=== PATIENT | male | born 1960 | race Caucasian/White ===

== ENCOUNTER 2019-03-25 23:51 | Emergency (ER) | payer SELFPAY ==
[2019-03-26] MEDS ORDERED: NA CHLORIDE 0.9% 1,000 ML ONE ×2 (00:51→02:58)
[2019-03-26] MEDS ORDERED: ONDANSETRON 4 MG/2 ML VIAL ONE (00:51)
[2019-03-26 01:09] LABS: Absolute Lymphocytes (CBC) 1.3 K/uL (0.7-4.9); Absolute Monocytes 1.1 K/uL (0.1-1.3); Basophils % 1.2 % (0-1.3); Eosinophils % 1.1 % (0-4.4); Hematocrit 36.6 % (39.6-49.0); Lymphocytes % 11.3 % (15.3-44.8); MPV 9.2 fL (7.6-11.3); Monocytes % 9.4 % (3.3-12.3); RBC Red Blood Cell Count 4.03 M/uL (4.33-5.43)
[2019-03-26] MEDS ORDERED: FENTANYL CITR 100 MCG/2 ML ONE (01:33)
[2019-03-26 02:06] LABS: ALT/SGPT 29 U/L (12-78); AST/SGOT 19 U/L (15-37); Albumin 2.7 g/dL (3.4-5.0); Alkaline Phosphatase 140 U/L (45-117); BUN Blood Urea Nitrogen 12 mg/dL (7-18); Bicarbonate 26 mmol/L (21-32); Bilirubin Direct < 0.1 mg/dL (0-0.2); Bilirubin Total 0.4 mg/dL (0.2-1.0); Glucose Level 217 mg/dL (74-106); Lipase 104 U/L (73-393); Potassium 3.5 mmol/L (3.5-5.1); Protein, Total 7.2 g/dL (6.4-8.2); Sodium Level 136 mmol/L (136-145); Troponin (Emerg Dept Use Only) < 0.02 ng/mL (0.0-0.045)
[2019-03-26] MEDS ORDERED: FAMOTIDINE 20 MG/2 ML VIAL IV ONE (02:25)
[2019-03-26] MEDS ORDERED: MAGNE/ALUM HYDROXD 30 ML UCUP ONE (02:57)
[2019-03-26] MEDS ORDERED: LIDOCAINE VISCOUS 2% SOLN 15 ML UDC ONE (02:58)
[2019-03-26] MEDS ORDERED: HYDROMORPHONE HCL 0.5 MG/0.5 ML INJ ONE (02:58)
--- NOTE | 2019-03-26 03:48 | EDPHYS ---
Physician Documentation [facility] Name: Armin Kapadia Jr Age: 58 yrs Sex: Male : 1960 Arrival Date: 03/25/2019 Time: 23:55 Bed 7 Private MD: ED Physician Abiodun Ballard HPI: 03/26 03:39 This 58 yrs old Male presents to ER via Ambulatory with complaints of gs Abdominal Pain, Decreased Appetite, Vomiting, Chest Pain. 03:40 The patient presents to the emergency department with nausea, vomiting. Onset: The gs symptoms/episode began/occurred yesterday, at 01:00. Possible causes: unknown. The symptoms are aggravated by food , alcohol. Associated signs and symptoms: Pertinent positives: vomiting. Severity of symptoms: At their worst the symptoms were severe in the emergency department the symptoms have improved mildly. The patient has experienced similar episodes in the past, a few times. 03:40 EPIGASTRIC PAIN WITH LOWER CHEST PRESSURE. gs Historical: - Allergies: 00:29 No Known Allergies; fc - Home Meds: 00:29 propranolol 20 mg Oral tab 1 tab daily [Active]; fc - PMHx: 00:29 tremors; COPD; high trig; fc - PSHx: 00:29 None; fc - Immunization history:: Adult Immunizations up to date. - Social history:: Smoking status: Patient uses tobacco products, Vaps, quit cigarettes 3 months ago, Patient uses alcohol, on a daily basis. 12 beers a day. - Ebola Screening: : Patient negative for fever greater than or equal to 101.5 degrees Fahrenheit, and additional compatible Ebola Virus Disease symptoms Patient denies exposure to infectious person Patient denies travel to an Ebola-affected area in the 21 days before illness onset. ROS: 03:40 All other systems are negative. gs Exam: 03:40 Head/Face: Normocephalic, atraumatic. Eyes: Pupils equal round and reactive to light, gs extra-ocular motions intact. Lids and lashes normal. Conjunctiva and sclera are non-icteric and not injected. Cornea within normal limits. Periorbital areas with no swelling, redness, or edema. ENT: Nares patent. No nasal discharge, no septal abnormalities noted. Tympanic membranes are normal and external auditory canals are clear. Oropharynx with no redness, swelling, or masses, exudates, or evidence of obstruction, uvula midline. Mucous membranes moist. Neck: Trachea midline, no thyromegaly or masses palpated, and no cervical lymphadenopathy. Supple, full range of motion without nuchal rigidity, or vertebral point tenderness. No Meningismus. Chest/axilla: Normal chest wall appearance and motion. Nontender with no deformity. No lesions are appreciated. Cardiovascular: Regular rate and rhythm with a normal S1 and S2. No gallops, murmurs, or rubs. Normal PMI, no JVD. No pulse deficits. Respiratory: Lungs have equal breath sounds bilaterally, clear to auscultation and percussion. No rales, rhonchi or wheezes noted. No increased work of breathing, no retractions or nasal flaring. Back: No spinal tenderness. No costovertebral tenderness. Full range of motion. Skin: Warm, dry with normal turgor. Normal color with no rashes, no lesions, and no evidence of cellulitis. MS/ Extremity: Pulses equal, no cyanosis. Neurovascular intact. Full, normal range of motion. Neuro: Awake and alert, GCS 15, oriented to person, place, time, and situation. Cranial nerves II-XII grossly intact. Motor strength 5/5 in all extremities. Sensory grossly intact. Cerebellar exam normal. Normal gait. 03:40 Constitutional: The patient appears alert, awake, uncomfortable. 03:40 ECG was reviewed by the Attending Physician. 03:40 Abdomen/GI: Palpation: moderate abdominal tenderness, in the epigastric area, right upper quadrant and left upper quadrant. Vital Signs: 00:10 BP 170 / 98; Pulse 99; Resp 20; Temp 98.0(O); Pulse Ox 96% on R/A; Weight 72.57 kg (R); fc Height 5 ft. 7 in. (170.18 cm) (R); Pain 9/10; 01:22 BP 170 / 99; Pulse 94; Resp 20; Pulse Ox 97% on R/A; Pain 9/10; fc 01:49 BP 162 / 107; Pulse 85; Resp 18; Pulse Ox 98% on R/A; Pain 4/10; fc 02:15 BP 160 / 93; Pulse 98; Resp 20; Pulse Ox 96% on R/A; Pain 7/10; fc 03:17 BP 166 / 97; Pulse 89; Resp 16; Pulse Ox 96% ; Pain 5/10; fc 03:51 BP 148 / 104; Pulse 82; Resp 18; Pulse Ox 96% on R/A; Pain 4/10; fc 04:04 BP 161 / 100; Pulse 84; Resp 20; Temp 98.4; Pulse Ox 98% ; Pain 4/10; fc 04:15 BP 157 / 96; Pulse 79; Resp 20; Temp 98.4(O); Pulse Ox 97% on R/A; Pain 4/10; fc 00:10 Body Mass Index 25.06 (72.57 kg, 170.18 cm) MDM: 00:20 Patient medically screened. 03:40 Differential diagnosis: Nonspecific abd pain, gastritis, pancreatitis, viral gs gastroenteritis. Data reviewed: vital signs, nurses notes. Counseling: I had a detailed discussion with the patient and/or guardian regarding: the historical points, exam findings, and any diagnostic results supporting the discharge/admit diagnosis, the presence of at least one elevated blood pressure reading (>120/80) during this emergency department visit, lab results, radiology results, the need for outpatient follow up. Response to treatment: the patient's symptoms have markedly improved after treatment, and as a result, I will discharge patient. 03/26 00:21 Order name: Basic Metabolic Panel; Complete Time: 02:28 03/26 00:21 Order name: CBC with Diff; Complete Time: 01:15 03/26 00:21 Order name: Hepatic Function; Complete Time: 02:28 03/26 00:21 Order name: Lipase; Complete Time: 02:28 03/26 00:21 Order name: Troponin (emerg Dept Use Only); Complete Time: 02:28 03/26 02:31 Order name: CT Abd/Pelvis - W/Contrast 03/26 00:21 Order name: IV Saline Lock; Complete Time: 00:59 03/26 00:21 Order name: Labs collected and sent; Complete Time: 00:59 03/26 00:21 Order name: EKG - Nurse/Tech; Complete Time: 00:30 gs EC:40 Rate is 88 beats/min. Rhythm is regular. CO interval is normal. QRS interval is normal. gs T waves are Inverted in leads V1, V2. Clinical impression: NSR w/ Non-specific ST/T Changes. Interpreted by me. Administered Medications: 00:59 Drug: Zofran 4 mg Route: IVP; Site: right antecubital; fc 01:21 Follow up: Response: No adverse reaction; Nausea is decreased fc 00:59 Drug: NS 0.9% 1000 ml Route: IV; Rate: 1 bolus; Site: right antecubital; fc 02:14 Follow up: Response: No adverse reaction; IV Status: Completed infusion; IV Intake: fc 1000ml 01:21 Drug: fentaNYL (PF) 50 mcg Route: IVP; Site: right antecubital; fc 01:50 Follow up: Response: No adverse reaction; Pain is decreased fc 02:13 Drug: Pepcid 20 mg Route: IVP; Site: right antecubital; fc 02:42 Follow up: Response: No adverse reaction; No change in condition fc 02:49 Drug: GI Cocktail without - (Maalox Suspension 30 ml, Lidocaine Liquid 2 % 15 fc ml) Route: PO; 03:48 Follow up: Response: No adverse reaction; Pain is decreased fc 02:50 Drug: Dilaudid 0.5 mg Route: IVP; Site: right antecubital; fc 03:48 Follow up: Response: No adverse reaction; Pain is decreased fc 02:50 Drug: NS 0.9% 1000 ml Route: IV; Rate: 1 bolus; Site: right antecubital; fc 04:16 Follow up: Response: No adverse reaction; No change in condition; IV Status: Completed fc infusion; IV Intake: 1000ml Disposition: 03/26/19 03:47 Discharged to Home. Impression: Upper abdominal pain, unspecified, Pneumonia, unspecified organism. - Condition is Stable. - Discharge Instructions: Abdominal Pain, Adult, Pneumonitis. - Prescriptions for Levaquin 500 mg Oral Tablet - take 1 tablet by ORAL route once daily for 7 days; 7 tablet. Pepcid 20 mg Oral Tablet - take 1 tablet by ORAL route every 12 hours; 30 tablet. Zofran 4 mg Oral Tablet - take 1 tablet by ORAL route every 12 hours As needed; 6 tablet. Tylenol- Codeine #4 300-60 mg Oral Tablet - take 1 tablet by ORAL route every 6 hours As needed; 6 tablet. - Medication Reconciliation Form, Thank You Letter, Antibiotic Education, Prescription Opioid Use form. - Follow up: Private Physician; When: 1 - 2 days; Reason: Re-evaluation by your physician. Signatures: Dispatcher [employer] Juany Donahue RN RN Abiodun Wang MD MD gs Corrections: (The following items were deleted from the chart) 04:21 03:47 03/26/2019 03:47 Discharged to Home. Impression: Upper abdominal pain, fc unspecified; Pneumonia, unspecified organism. Condition is Stable. Forms are Medication Reconciliation Form, Thank You Letter, Antibiotic Education, Prescription Opioid Use. Follow up: Private Physician; When: 1 - 2 days; Reason: Re-evaluation by your physician. gs
--- NOTE | 2019-03-26 03:48 | ER ---
Nurse's Notes [facility] Name: Armin Kapadia Jr Age: 58 yrs Sex: Male : 1960 Arrival Date: 03/25/2019 Time: 23:55 Bed 7 Private MD: Diagnosis: Upper abdominal pain, unspecified;Pneumonia, unspecified organism Presentation: 03/26 00:10 Presenting complaint: Patient states: that he is having upper abd pain that radiates to fc his chest. Also having nausea, vomiting and shortness of breath. States he got a lung infection 1 week ago and was given Augmentin from a friend and took 3 doses. Not eating or drinking anything today. Transition of care: patient was not received from another setting of care. Onset of symptoms was March 25, 2019 at 04:00. Risk Assessment: Do you want to hurt yourself or someone else? Patient reports no desire to harm self or others. Initial Sepsis Screen: Does the patient meet any 2 criteria? HR > 90 bpm. Yes Does the patient have a suspected source of infection? No. Patient's initial sepsis screen is negative. Care prior to arrival: None. 00:10 Method Of Arrival: Ambulatory fc 00:10 Acuity: NEL 3 fc Triage Assessment: 00:10 General: Appears uncomfortable, slender, Behavior is cooperative, appropriate for age, fc anxious. Pain: Complains of pain in epigastric area and right upper quadrant Pain radiates to chest Pain currently is 9 out of 10 on a pain scale. Quality of pain is described as aching, radiating, sharp, Pain began 1 day ago. Is continuous. EENT: No deficits noted. Neuro: Level of Consciousness is awake, alert, obeys commands, Oriented to person, place, time, situation, Appropriate for age. Cardiovascular: Reports chest pain, nausea, shortness of breath, vomiting, Heart tones S1 S2 Capillary refill < 3 seconds Pulses are all present. Rhythm is regular Chest pain is described as vague, quality is sharp, aching is located in entire chest radiating from stomach began 1 day ago episodes are continuous. Respiratory: Reports shortness of breath on exertion Airway is patent Respiratory effort is even, unlabored, Respiratory pattern is regular, symmetrical, Breath sounds are clear bilaterally. the patient has mild shortness of breath. GI: Abdomen is round Bowel sounds present X 4 quads. Abd is soft X 4 quads Abdomen is tender to palpation in epigastric area and right upper quadrant Reports upper abdominal pain, epigastric pain, nausea, vomiting. : No deficits noted. Derm: Skin is intact, Skin is dry, Skin is flushed, Skin temperature is warm. Musculoskeletal: Circulation, motion, and sensation intact. Capillary refill < 3 seconds, Range of motion: intact in all extremities. Historical: - Allergies: 00:29 No Known Allergies; fc - Home Meds: 00:29 propranolol 20 mg Oral tab 1 tab daily [Active]; fc - PMHx: 00:29 tremors; COPD; high trig; fc - PSHx: 00:29 None; fc - Immunization history:: Adult Immunizations up to date. - Social history:: Smoking status: Patient uses tobacco products, Vaps, quit cigarettes 3 months ago, Patient uses alcohol, on a daily basis. 12 beers a day. - Ebola Screening: : Patient negative for fever greater than or equal to 101.5 degrees Fahrenheit, and additional compatible Ebola Virus Disease symptoms Patient denies exposure to infectious person Patient denies travel to an Ebola-affected area in the 21 days before illness onset. Screenin:10 Abuse screen: Denies threats or abuse. Nutritional screening: No deficits noted. fc Tuberculosis screening: No symptoms or risk factors identified. Fall Risk None identified. Assessment: 00:27 Reassessment: No changes from previously documented assessment. see triage assessment fc done by me. 01:00 General: Appears uncomfortable, Behavior is cooperative, appropriate for age, anxious. fc Pain: Complains of pain in chest and right upper quadrant and epigastric area Pain currently is 9 out of 10 on a pain scale. Quality of pain is described as aching, sharp, throbbing, Is continuous. Neuro: Level of Consciousness is awake, alert, obeys commands, Oriented to person, place, time, situation, Appropriate for age. Cardiovascular: Reports chest pain, nausea, shortness of breath, vomiting, Heart tones S1 S2 Capillary refill < 3 seconds Pulses are all present. Rhythm is regular Chest pain is described as vague, quality is sharp, aching radiates from abd. Respiratory: Airway is patent Respiratory effort is even, unlabored, Respiratory pattern is regular, symmetrical. GI: Abdomen is round Bowel sounds present X 4 quads. Abd is soft X 4 quads Abdomen is tender to palpation in epigastric area and right upper quadrant Reports upper abdominal pain, nausea, vomiting. : No deficits noted. EENT: No deficits noted. Derm: Skin is intact, Skin is dry, Skin is flushed, Skin temperature is warm. Musculoskeletal: Circulation, motion, and sensation intact. Capillary refill < 3 seconds, Range of motion: intact in all extremities. 01:21 Reassessment: Pt continues to have increasing upper abd pain. Discussed with Dr Ballard fc and pt given Fentanyl as ordered. 01:50 GI: Abdomen is round Bowel sounds present X 4 quads. Abd is soft X 4 quads Abdomen is fc tender to palpation in epigastric area and right upper quadrant Reports upper abdominal pain, pain down to a 4 out of 10 since admin of medication. 02:14 Reassessment: Dr Ballard reviewed labs and ordered Pepcid 20 mg ivp which was given. fc While in there pt stated that his pain is coming back. I explained that the dr would be in shortly to discuss test results with him. 02:52 Reassessment: After Dr Ballard spoke with pt it was decided to give pt more medications fc and order a CT Scan. All medications given as ordered. 03:16 Reassessment: PT has returned from CT Scan. Patient states feeling better. Patient fc states symptoms have improved. 03:51 Reassessment: Pt states that the pain is still "rohit" there but better. Patient states fc feeling better. Patient states symptoms have improved. 04:14 Reassessment: Pt states that he needs pain medication to go home on. Discussed with Dr juanjo Ballard and pt to get script for home. Vital Signs: 00:10 BP 170 / 98; Pulse 99; Resp 20; Temp 98.0(O); Pulse Ox 96% on R/A; Weight 72.57 kg (R); fc Height 5 ft. 7 in. (170.18 cm) (R); Pain 9/10; 01:22 BP 170 / 99; Pulse 94; Resp 20; Pulse Ox 97% on R/A; Pain 9/10; fc 01:49 BP 162 / 107; Pulse 85; Resp 18; Pulse Ox 98% on R/A; Pain 4/10; fc 02:15 BP 160 / 93; Pulse 98; Resp 20; Pulse Ox 96% on R/A; Pain 7/10; fc 03:17 BP 166 / 97; Pulse 89; Resp 16; Pulse Ox 96% ; Pain 5/10; fc 03:51 BP 148 / 104; Pulse 82; Resp 18; Pulse Ox 96% on R/A; Pain 4/10; fc 04:04 BP 161 / 100; Pulse 84; Resp 20; Temp 98.4; Pulse Ox 98% ; Pain 4/10; fc 04:15 BP 157 / 96; Pulse 79; Resp 20; Temp 98.4(O); Pulse Ox 97% on R/A; Pain 4/10; fc 00:10 Body Mass Index 25.06 (72.57 kg, 170.18 cm) fc ED Course: 03/25 23:55 Patient arrived in ED. es 03/26 00:10 Arm band placed on Patient placed in an exam room, on a stretcher. fc 00:10 Patient has correct armband on for positive identification. Placed in gown. Bed in low fc position. Call light in reach. 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 Pulse ox on. NIBP on. 00:10 No provider procedures requiring assistance completed. fc 00:11 Abiodun Ballard MD is Attending Physician. gs 00:20 EKG done, by ED staff, reviewed by Abiodun Ballard MD. fc 00:21 Triage completed. fc 00:37 Inserted saline lock: 20 gauge in right antecubital area, using aseptic technique. mw2 Blood collected. 03:20 CT Abd/Pelvis - W/Contrast In Process Unspecified. EDMS 04:15 IV discontinued, intact, bleeding controlled, No redness/swelling at site. Pressure fc dressing applied. Administered Medications: 00:59 Drug: Zofran 4 mg Route: IVP; Site: right antecubital; fc 01:21 Follow up: Response: No adverse reaction; Nausea is decreased fc 00:59 Drug: NS 0.9% 1000 ml Route: IV; Rate: 1 bolus; Site: right antecubital; fc 02:14 Follow up: Response: No adverse reaction; IV Status: Completed infusion; IV Intake: fc 1000ml 01:21 Drug: fentaNYL (PF) 50 mcg Route: IVP; Site: right antecubital; fc 01:50 Follow up: Response: No adverse reaction; Pain is decreased fc 02:13 Drug: Pepcid 20 mg Route: IVP; Site: right antecubital; fc 02:42 Follow up: Response: No adverse reaction; No change in condition fc 02:49 Drug: GI Cocktail without - (Maalox Suspension 30 ml, Lidocaine Liquid 2 % 15 fc ml) Route: PO; 03:48 Follow up: Response: No adverse reaction; Pain is decreased fc 02:50 Drug: Dilaudid 0.5 mg Route: IVP; Site: right antecubital; fc 03:48 Follow up: Response: No adverse reaction; Pain is decreased fc 02:50 Drug: NS 0.9% 1000 ml Route: IV; Rate: 1 bolus; Site: right antecubital; fc 04:16 Follow up: Response: No adverse reaction; No change in condition; IV Status: Completed fc infusion; IV Intake: 1000ml Intake: 02:14 IV: 1000ml; Total: 1000ml. fc 04:16 IV: 1000ml; Total: 2000ml. Outcome: 03:47 Discharge ordered by MD. 04:15 Discharged to home ambulatory. 04:15 Condition: good 04:15 Discharge instructions given to patient, family, Instructed on discharge instructions, follow up and referral plans. no drinking with medication, no driving heavy equipment, medication usage, Demonstrated understanding of instructions, follow-up care, medications, Prescriptions given X 4. 04:21 Patient left the ED. Signatures: Dispatcher [employer] Vesna Logan Felicia, RN RN Abiodun Ballard MD MD gs [place], MyKena mw2 Corrections: (The following items were deleted from the chart) 00:42 00:27 Inserted saline lock: 20 gauge in right antecubital area, using aseptic mw2 technique. Blood collected. mw2
[2019-03-26 04:38] VITALS: TEMP 98.4
[2019-03-26 04:40] VITALS: BP 157/96; O2SAT 97
--- NOTE | 2019-03-26 09:46 | EKG ---
Test Date: 2019-03-26 Test Time: 00:24:44 Conservation Technician: SHERRELL MEASUREMENT RESULTS: Intervals: Rate: 88 NH: 132 QRSD: 88 QT: 380 QTc: 459 [place]: P: 68 NH: 132 QRS: -39 T: 15 INTERPRETIVE STATEMENTS: Normal sinus rhythm Possible Left atrial enlargement Left axis deviation Left ventricular hypertrophy Nonspecific ST abnormality Abnormal ECG No previous ECG available for comparison Electronically Signed On 03-26-19 09:46:14 CDT by Thee Rodriguez
--- NOTE | 2019-03-27 11:22 | RAD REPORT ---
EXAM DESCRIPTION: CT - Abdomen Pelvis W Contrast - 03/26/2019 3:19 am CLINICAL HISTORY: Abdominal pain. COMPARISON: None. TECHNIQUE: Axial [address] imaging of the abdomen and pelvis performed utilizing intravenous contrast. Reformatted coronal and sagittal images reviewed. A dose reduction technique was utilized with automated exposure control according to patient size. FINDINGS: LOWER THORAX: Nodular centrilobular opacities within the lingula with atelectasis. There is no pleural fluid. Heart is normal in size. ABDOMEN: LIVER/GALLBLADDER: The liver is normal in size and contour. Moderate decreased attenuation due to fa tty infiltration. 1 cm right lobe cyst. Normal gallbladder. SPLEEN/PANCREAS: Normal spleen size, contour, and attenuation. Normal pancreas. KIDNEYS/ADRENAL GLANDS: Normal adrenal glands. Right renal 9 mm cyst. Normal left kidney. RETROPERITONEAL VESSELS/NODES: Moderate abdominal aorta and iliac artery atherosclerosis. Normal ti iber inferior vena cava. No adenopathy. Mesenteric vessels are well-opacified. 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 BOWEL: Normal stomach. The small bowel caliber is within normal limits. Normal appendix in the right lower quadrant. Normal colon. MESENTERY/PERITONEUM: No adenopathy or ascites. No free air. Tiny fat-containing umbilical hernia. PELVIS: BLADDER: Unremarkable bladder. GENITAL ORGANS: Dystrophic prostatic calcification. PERITONEUM: No pelvic free fluid or adenopathy. BONES AND SOFT TISSUES: Mild L4-5 and L5-S1 diffuse disc bulge. Mild lower thoracic spondylosis. Int act bony pelvis. Normal hips. IMPRESSION: 1. Lingula pneumonia with atelectasis. 2. Moderate hepatic steatosis. Right hepatic 1 cm cyst.. 3. 9 mm right renal cyst. Electronically signed by: Rosa Hawkins DO 03/26/2019 3:27 AM CDT Due to temporary technical issues with the PACS/Fluency reporting system, reports are being signed by the in house radiologist as a courtesy to ensure prompt reporting. The interpreting radiologist is f ully responsible for the content of the report.
== END 2019-03-26 04:21 | disposition home or self-care (01) ==
LOC: ER 23:51
DX: J18.9 Pneumonia, unspecified organism (principal); J44.9 Chronic obstructive pulmonary disease, unspecified; Z72.0 Tobacco use
CPT/HCPCS: 36415; 74177; 80048; 80076; 83690; 84484; 85025; 93005; 96361; 96374; 96375; 99285; J1170; J2405; J3010; J7030; Q9967

== ENCOUNTER 2023-03-14 04:12 | Emergency (ER) | payer BC ==
[2023-03-14] MEDS ORDERED: ASPIRIN 81 MG CHEWABLE TABLET ONE (04:37)
[2023-03-14 04:55] LABS: Absolute Lymphocytes (CBC) 1.6 K/uL (0.7-4.9); Hematocrit 41.2 % (39.6-49.0); Lymphocytes % 19.1 % (15.3-44.8); MCV 86.9 fL (80-100); MPV 9.3 fL (7.6-11.3); RBC Red Blood Cell Count 4.74 M/uL (4.33-5.43)
[2023-03-14 05:25] LABS: Potassium 4.1 mEq/L (3.5-5.1)
--- NOTE | 2023-03-14 06:02 | EDPHYS ---
Physician Documentation [facility] Name: Armin Kapadia Jr Age: 62 yrs Sex: Male : 1960 Arrival Date: 03/14/2023 Time: 04:12 Bed 5 Private MD: ED Physician Blake Luther HPI: 03/14 04:59 This 62 yrs old Male presents to ER via Ambulatory with complaints of Chest bs3 Pain. 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 He bs3 has never had this cp before, it was going to his left shoulder blade. It was moderate in intensity but now has improved. He notes radiation toward his left arm, no weakness. He was at work not exeriting himself when it started. No nausea or vomiting. . Historical: - Allergies: 04:18 No Known Allergies; ha1 - Home Meds: 04:18 propranolol 20 mg Oral tab 1 tab daily [Active]; ha1 - PMHx: 04:18 COPD; high trig; tremors; Diabetes mellitus; ha1 - Immunization history:: Adult Immunizations up to date. - Social history:: Smoking status: Patient/guardian denies using tobacco, the patient reports quitting approximately 4 years ago. ROS: 05:55 Constitutional: Negative for fever, chills bs3 05:55 All other systems are negative. Exam: 05:55 Constitutional: This is a well developed, well nourished patient who is awake, alert, bs3 and in no acute distress. Head/Face: Normocephalic, atraumatic. Eyes: Pupils equal round and reactive to light, extra-ocular motions intact. Lids and lashes normal. ENT: mmm, no posterior phyarngeal erythema Neck: Trachea midline, no thyromegaly, no neck stiffness Chest/axilla: Normal chest wall appearance and motion. Nontender with no deformity. No lesions are appreciated. Cardiovascular: Regular rate and rhythm with a normal S1 and S2. symmetric pulses in upper extremities Respiratory: Lungs have equal breath sounds bilaterally, clear to auscultation, no respiratory distress MS/ Extremity: Pulses equal, no cyanosis. Neurovascular intact. Full, normal range of motion. Blood pressures are elevated but not significantly changed on bilateral extremities Neuro: Awake and alert, GCS 15, oriented to person, place, time, and situation. Cranial nerves II-XII grossly intact. Motor strength 5/5 in all extremities. Sensory grossly intact. Psych: Awake, alert, with orientation to person, place and time. Behavior, mood, and affect are within normal limits. 05:55 Initial EKG normal sinus rhythm at 80 he has borderline depression in lead II with slight ST elevation in aVR and an incomplete right bundle branch block his QTc is 4 four 7 repeat EKG performed at 442 is not significantly changed from the initial although his rate is slightly slower at 75 Vital Signs: 04:18 BP 163 / 106 Sitting; Pulse 83; Resp 19; Pulse Ox 97% on R/A; Weight 74.84 kg; Height 5 ha1 ft. 9 in. ; Pain 10/10; 04:22 BP 163 / 97 LA Sitting; Pulse 80; Resp 16 S; Pulse Ox 98% on R/A; ha1 05:03 BP 136 / 94; Pulse 81; Resp 14 S; Pulse Ox 97% on R/A; ha1 06:00 BP 147 / 81; Pulse 80; Resp 18 S; Pulse Ox 98% on R/A; ha1 04:18 Body Mass Index 24.37 (74.84 kg, 175.26 cm) ha1 04:18 Pain Scale: Adult ha1 MDM: 04:17 Patient medically screened. bs3 05:55 Differential diagnosis: abnormal EKG, acute myocardial infarction, acute pericarditis, bs3 coronary artery disease chest wall pain, gastroesophageal reflux disease (GERD), thoracic aortic disection, unstable angina, His EKG is abnormal his heart score is a 4 pending the troponin his x-ray interpreted by myself is negative for widening of the mediastinum will do's cardiac work-up and plan to admit. Data reviewed: vital signs, nurses notes. 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 who is home alone and I explained that if he is having a heart attack or an aortic dissection these could be debilitating or life-threatening and he could he understood and noted that he would come back tomorrow given the situation I had an alternative plan which would be to do the dissection scan and he stated that he would leave as soon as the scan was completed but that I would call him if the result was abnormal for him to come back immediately which she was agreeable to the scan was performed and there was no obvious ascending dissection as interpreted by myself during the scan and the patient left he was instructed to come back immediately if he could arrange for care. 06:09 ED course: I will also draw a troponin as he is leaving to trend and if trending up, bs3 will call him and strongly advise him to return. 03/14 04:25 Order name: Basic Metabolic Panel; Complete Time: 05:31 [facility] 03/14 04:25 Order name: CBC with Diff; Complete Time: 05:02 [facility] 03/14 04:25 Order name: Troponin HS; Complete Time: 05: [facility] 03/14 06:05 Order name: Troponin High Sensitivity [facility] 03/14 04:25 Order name: XRAY Chest (1 view) [facility] 03/14 05:33 Order name: CT Aorta for Dissection [facility] 03/14 04:25 Order name: EKG; Complete Time: 04:26 [facility] 03/14 04:17 Order name: EKG - Nurse/Tech; Complete Time: 04: [facility] 03/14 04:25 Order name: Cardiac monitoring; Complete Time: 04:28 [facility] 03/14 04:25 Order name: IV Saline Lock; Complete Time: 04:33 [facility] 03/14 04:25 Order name: Labs collected and sent; Complete Time: 04:33 [facility] 03/14 04:25 Order name: O2 Per Protocol; Complete Time: 04: [facility] 03/14 04:25 Order name: O2 Sat Monitoring; Complete Time: 04: 3 Administered Medications: 04:30 Drug: Aspirin PO Chewable Tablet 324 mg Route: PO; ha1 05:00 Follow up: Response: No adverse reaction ha1 Disposition Summary: 03/14/23 06:01 Discharge Ordered Location: Home bs3 Problem: new bs3 Symptoms: have improved bs3 Condition: Serious bs3 Diagnosis - Chest pain, unspecified bs3 Followup: bs3 - With: Emergency Department - When: Today - Reason: Discharge Instructions: - Discharge Summary Sheet bs3 - Nonspecific Chest Pain, Adult, [id number] bs3 Forms: - Medication Reconciliation Form bs3 - Thank You Letter bs3 Signatures: Dispatcher [employer] Kaelyn Parsons RN RN ha1 Blake Luther MD MD bs3
--- NOTE | 2023-03-14 06:02 | ER ---
Nurse's Notes [facility] Name: Armin Kapadia Jr Age: 62 yrs Sex: Male : 1960 Arrival Date: 03/14/2023 Time: 04:12 Bed 5 Private MD: Diagnosis: Chest pain, unspecified Presentation: 03/14 04:18 Chief complaint: Patient states: I was sitting at work when I started to develop this ha1 terrible chest pain that radiates to the left side of my back. 04:18 Coronavirus screen: Vaccine status: Patient reports receiving the 2nd dose of the covid ha1 vaccine. [employer]. Ebola Screen: No symptoms or risks identified at this time. Initial Sepsis Screen: Does the patient meet any 2 criteria? No. Patient's initial sepsis screen is negative. Does the patient have a suspected source of infection? No. Patient's initial sepsis screen is negative. Risk Assessment: Do you want to hurt yourself or someone else? Patient reports no desire to harm self or others. Onset of symptoms was March 14, 2023. 04:18 Method Of Arrival: Ambulatory ha1 04:18 Acuity: NEL 3 ha1 Triage Assessment: 04:18 General: Appears uncomfortable, Behavior is calm, cooperative. Pain: Complains of pain ha1 in chest Pain radiates to left side shoulder Pain currently is 10 out of 10 on a pain scale. Quality of pain is described as tingling, throbbing. EENT: No signs and/or symptoms were reported regarding the EENT system. Neuro: Level of Consciousness is awake, alert, obeys commands, Oriented to person, place, time, situation. Cardiovascular: Reports chest pain, Heart tones S1 S2 present Capillary refill < 3 seconds Patient's skin is warm and dry. Rhythm is regular. Respiratory: Airway is patent Respiratory effort is even, unlabored, Respiratory pattern is regular, symmetrical. GI: No signs and/or symptoms were reported involving the gastrointestinal system. Abdomen is flat, non-distended. Derm: Skin is pink, warm \\T\\ dry. Musculoskeletal: Circulation, motion, and sensation intact. Range of motion: intact in all extremities. Historical: - Allergies: 04:18 No Known Allergies; ha1 - Home Meds: 04:18 propranolol 20 mg Oral tab 1 tab daily [Active]; ha1 - PMHx: 04:18 COPD; high trig; tremors; Diabetes mellitus; ha1 - Immunization history:: Adult Immunizations up to date. - Social history:: Smoking status: Patient/guardian denies using tobacco, the patient reports quitting approximately 4 years ago. Screenin:18 Abuse screen: Denies threats or abuse. Denies injuries from another. Nutritional ha1 screening: No deficits noted. Tuberculosis screening: No symptoms or risk factors identified. 04:18 [facility] ED Fall Risk Assessment (Adult) History of falling in the last 3 months, ha1 including since admission No falls in past 3 months (0 pts) Confusion or Disorientation No (0 pts) Intoxicated or Sedated No (0 pts) Impaired Gait Yes (1 pt) Mobility Assist Device Used No (0 pt) Altered Elimination No (0 pt) Score/Fall Risk Level 0 - 2 = Low Risk Oriented to surroundings, Maintained a safe environment, Educated pt \\T\\ family on fall prevention, incl call for assistance when getting out of bed, Hourly rounding (assess needs \\T\\ fall precautionary measures) done. Assessment: 04:18 Reassessment: see triage assessment. ha1 04:18 Pain: Pain began suddenly. ha1 05:00 Reassessment: Patient and/or family updated on plan of care and expected duration. Pain ha1 level reassessed. Patient is alert, oriented x 3, equal unlabored respirations, skin warm/dry/pink. Patient states symptoms have improved. 05:45 Reassessment: Patient and/or family updated on plan of care and expected duration. Pain ha1 level reassessed. Patient is alert, oriented x 3, equal unlabored respirations, skin warm/dry/pink. going to CT. 06:00 Reassessment: Requesting to be discharge. Dr. Luther explained the need for admission. ha1 States " I do not want to stay". Vital Signs: 04:18 BP 163 / 106 Sitting; Pulse 83; Resp 19; Pulse Ox 97% on R/A; Weight 74.84 kg; Height 5 ha1 ft. 9 in. ; Pain 10/10; 04:22 BP 163 / 97 LA Sitting; Pulse 80; Resp 16 S; Pulse Ox 98% on R/A; ha1 05:03 BP 136 / 94; Pulse 81; Resp 14 S; Pulse Ox 97% on R/A; ha1 06:00 BP 147 / 81; Pulse 80; Resp 18 S; Pulse Ox 98% on R/A; ha1 04:18 Body Mass Index 24.37 (74.84 kg, 175.26 cm) ha1 04:18 Pain Scale: Adult ha1 ED Course: 04:15 Patient arrived in ED. [id number] 04:17 Blake Luther MD is Attending Physician. bs3 04:18 Patient maintains SpO2 saturation greater than 95% on room air. ha1 04:18 Arm band placed on right wrist. ha1 04:18 Patient has correct armband on for positive identification. Placed in gown. Bed in low ha1 position. Call light in reach. Side rails up X 1. 04:18 Client placed on continuous cardiac and pulse oximetry monitoring. NIBP monitoring ha1 applied. 04:33 Inserted saline lock: 20 gauge in right antecubital area, using aseptic technique. rv1 Blood collected. 04:33 Basic Metabolic Panel Sent. rv1 04:33 CBC with Diff Sent. rv1 04:33 Troponin HS Sent. rv1 04:37 X-ray completed. Portable x-ray completed in exam room. md2 04:38 Triage completed. ha1 04:56 XRAY Chest (1 view) In Process Unspecified. EDMS 06:03 CT Aorta for Dissection In Process Unspecified. EDMS 06:16 No provider procedures requiring assistance completed. IV discontinued, intact, ha1 bleeding controlled, No redness/swelling at site. Pressure dressing applied. Administered Medications: 04:30 Drug: Aspirin PO Chewable Tablet 324 mg Route: PO; ha1 05:00 Follow up: Response: No adverse reaction ha1 Medication: 06:18 VIS not applicable for this client. ha1 Outcome: 06:01 Discharge ordered by . bs3 06:16 Discharged to home ambulatory. ha1 06:16 Condition: stable 06:16 Discharge instructions given to patient, Instructed on discharge instructions, follow up and referral plans. Demonstrated understanding of instructions, follow-up care, need to to come back to the ER to follow up and if symptoms reoccur. 06:19 Patient left the ED. ha1 Signatures: Dispatcher [employer] EDPA Yohannes Ilana [id number] Kaelny Campbell RN RN ha1 Blake Luther MD MD bs3 Kathy Bernal md2 Azeb Tubbs rv1
[2023-03-14 06:32] VITALS: BP 147/81; O2SAT 98
--- NOTE | 2023-03-15 10:31 | RAD REPORT ---
EXAM DESCRIPTION: Angio Aorta For Dissection CLINICAL HISTORY: 62 years Male left cp radiating to back COMPARISON: None TECHNIQUE: CT angiography of the chest, abdomen and pelvis was performed with axial dataset after richard rafael injection of intravenous contrast. Multiplanar reformation, 3D and MIP reconstructions were perfo rmed. This exam was performed according to our departmental dose-optimization program, which includes automated exposure control, adjustment of the mA and/or kV according to patient size and/or use of i terative reconstruction technique. FINDINGS: Chest: Aorta: No evidence of aortic dissection or aneurysm. Atherosclerosis with noncalcified plaque of the descending aorta medially. Pulmonary arteries: No evidence of pulmonary embolism. Mediastinum: Unremarkable. No adenopathy. Heart: Heart is normal in size. No pericardial effusion. Lungs / airways: No consolidation. 5 and 2 mm right lower lobe pulmonary nodule. A 2 mm right middle lobe pulmonary nodule. Airways are patent. Pleura: No significant pleural effusion. No pneumothorax. Biapical pleural thickening. Osseous: Multilevel degenerative changes. Soft tissues: Unremarkable. Abdomen and pelvis: Liver: No focal lesions. Gallbladder: Negative. Pancreas: Within normal limits. Spleen: Within normal limits. Kidneys: No hydronephrosis. No focal lesion. Adrenal glands: Within normal limits. Vasculature: No aneurysm or dissection. Mild atherosclerosis with calcified and noncalcified plaque o f the aorta and its major branches. Bowel: Diverticulosis without inflammatory changes. No bowel distention. Appendix: Within normal limits. Peritoneum: No free fluid or free air. Lymph Nodes: No lymphadenopathy. Reproductive: Unremarkable. Urinary bladder: Unremarkable. Osseous structures: Unremarkable. Soft tissues: Small bilateral fat-containing inguinal hernias. IMPRESSION: 1. No acute pathology to the chest, abdomen and pelvis. 2. Atherosclerosis of the descending thoracic aorta with noncalcified plaque. Atherosclerosis of the abdominal aorta with calcified and noncalcified plaque. 3. Right-sided pulmonary nodules as described above. No routine follow-up imaging is recommended per Fleischner Society Guidelines. These guidelines do not apply to immunocompromised patients and patien ts with cancer. Follow up in patients with significant comorbidities as clinically warranted. For marielle g cancer screening, adhere to Lung-RADS guidelines. Reference: Radiology. 2017; 284(1):228-43. Electronically signed by: Arnav Padron MD 03/14/2023 7:03 AM CDT Due to temporary technical issues with the PACS/Fluency reporting system, reports are being signed by the in house radiologist without review as a courtesy to ensure prompt reporting. The interpreting r adiologist is fully responsible for the content of the report.
--- NOTE | 2023-03-15 10:32 | RAD REPORT ---
EXAM DESCRIPTION: XR Chest, 1 View CLINICAL HISTORY: The patient is 62 years old and is Male; CHEST PAIN TECHNIQUE: Frontal view of the chest. COMPARISON: No relevant prior studies available. FINDINGS: Lungs: Unremarkable. No consolidation. Pleural space: Unremarkable. No pneumothorax. Heart: Unremarkable. Mediastinum: Unremarkable. Bones/joints: Unremarkable. IMPRESSION: No acute findings in the chest. Electronically signed by: Renan Moody MD 03/14/2023 5:37 AM CDT Due to temporary technical issues with the PACS/Fluency reporting system, reports are being signed by the in house radiologist without review as a courtesy to ensure prompt reporting. The interpreting r adiologist is fully responsible for the content of the report.
--- NOTE | 2023-03-15 15:24 | EKG ---
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
--- NOTE | 2023-03-15 15:24 | EKG ---
Test Date: 2023-03-14 Test Time: 04:22:24 [place]: RV MEASUREMENT RESULTS: Intervals: Rate: 80 NM: 142 QRSD: 92 QT: 388 QTc: 447 [place]: P: 61 NM: 142 QRS: -47 T: 26 INTERPRETIVE STATEMENTS: Normal sinus rhythm Possible Left atrial enlargement Pulmonary disease pattern Incomplete right bundle branch block Left anterior fascicular block Left ventricular hypertrophy Abnormal ECG Compared to ECG 03/26/2019 00:24:44 Incomplete right bundle-branch block now present Left anterior fascicular block now present Left-axis deviation no longer present ST (T wave) deviation no longer present Electronically Signed On 03-15-23 15:21:56 CDT by Mahad Vasquez
== END 2023-03-14 06:19 | disposition home or self-care (01) ==
LOC: ER 04:12
DX: R07.9 Chest pain, unspecified (principal); J44.9 Chronic obstructive pulmonary disease, unspecified; E11.9 Type 2 diabetes mellitus without complications; Z87.891 Personal history of nicotine dependence
CPT/HCPCS: 93005 ×2; 85025; 80048; 36415; 84484 ×2; 71275; 74175; 71045; Q9967

== ENCOUNTER 2023-05-24 10:50 | Emergency (ER) | payer BC ==
[2023-05-24 11:21] LABS: Absolute Lymphocytes (CBC) 1.2 K/uL (0.7-4.9); Lymphocytes % 17.2 % (15.3-44.8); MCV 87.1 fL (80-100); MPV 9.5 fL (7.6-11.3); RBC Red Blood Cell Count 4.82 M/uL (4.33-5.43)
[2023-05-24] MEDS ORDERED: ONDANSETRON 4 MG/2 ML VIAL ONE (11:23)
[2023-05-24] MEDS ORDERED: MECLIZINE HCL 12.5 MG TAB ONE (11:23)
[2023-05-24 11:25] LABS: Protime INR 0.95
[2023-05-24 11:36] LABS: Albumin 3.5 g/dL (3.4-5.0); Bilirubin Direct 0.2 mg/dL (0-0.2); Bilirubin Indirect, Calculated 0.4 mg/dL (0.2-0.8); Bilirubin Total 0.6 mg/dL (0.2-1.0); Magnesium 2.1 mg/dL (1.6-2.4); Potassium 4.2 mEq/L (3.5-5.1); Protein, Total 7.2 g/dL (6.4-8.2); Troponin High Sensitivity 8.2 pg/mL (<58.9)
--- NOTE | 2023-05-24 11:47 | RAD REPORT ---
EXAM DESCRIPTION: CT - Head Brain Wo Cont - 05/24/2023 11:35 am CLINICAL HISTORY: Vertigo COMPARISON: None TECHNIQUE: Computed axial tomography of the head was obtained. IV contrast was not requested. All CT scans are performed using dose optimization technique as appropriate and may include automated exposure control or mA/KV adjustment according to patient size. FINDINGS: An intracranial bleed is not seen The ventricles are normal in caliber No extra-axial fluid collection is noted. No significant hypodensity within the brain noted Fluid within the sinuses/ mastoids is not seen. IMPRESSION: No acute intracranial abnormality is seen If patient's symptoms persist MRI of the brain would be recommended
--- NOTE | 2023-05-24 12:44 | ER ---
Nurse's Notes [facility] Name: Armin Kapadia Jr Age: 62 yrs Sex: Male : 1960 Arrival Date: 05/24/2023 Time: 10:50 Bed 10 Private MD: Diagnosis: Other peripheral vertigo;Dizziness and giddiness Presentation: 05/24 10:54 Chief complaint: Patient states: when I got out of bed yesterday the room felt like it iw was spinning, got better but then again this morning it happened again. Coronavirus screen: At this time, the client does not indicate any symptoms associated with coronavirus-19. Coronavirus screen: Client presents with at least one sign or symptom that may indicate coronavirus-19. Ebola Screen: Patient negative for fever greater than or equal to 101.5 degrees Fahrenheit, and additional compatible Ebola Virus Disease symptoms Patient denies exposure to infectious person. Patient denies travel to an Ebola-affected area in the 21 days before illness onset. No symptoms or risks identified at this time. Initial Sepsis Screen: Does the patient meet any 2 criteria? No. Patient's initial sepsis screen is negative. Does the patient have a suspected source of infection? No. Patient's initial sepsis screen is negative. Risk Assessment: Do you want to hurt yourself or someone else? Patient reports no desire to harm self or others. Onset of symptoms was May 23, 2023. 10:54 Method Of Arrival: Ambulatory iw 10:54 Acuity: NEL 3 iw Historical: - Allergies: 10:58 No Known Allergies; iw - Home Meds: 10:58 amlodipine 5 mg tablet daily [Active]; metformin 500 mg Oral tablet 2 times per day iw [Active]; rosuvastatin 10 mg oral tablet daily [Active]; propranolol 60 mg oral tablet 1 tab daily [Active]; - PMHx: 10:57 COPD; diabetes mellitus; high trig; tremors; iw - Immunization history:: Client reports receiving the 2nd dose of the Covid vaccine. - Social history:: Smoking status: Patient denies any tobacco usage or history of. Screenin:05 [facility] ED Fall Risk Assessment (Adult) History of falling in the last 3 months, aa5 including since admission No falls in past 3 months (0 pts) Confusion or Disorientation No (0 pts) Intoxicated or Sedated No (0 pts) Impaired Gait No (0 pts) Mobility Assist Device Used No (0 pt) Altered Elimination No (0 pt) Score/Fall Risk Level 0 - 2 = Low Risk Oriented to surroundings, Maintained a safe environment, Educated pt \T\ family on fall prevention, incl call for assistance when getting out of bed. Abuse screen: Denies threats or abuse. Nutritional screening: No deficits noted. Tuberculosis screening: No symptoms or risk factors identified. Assessment: 11:00 General: Appears uncomfortable, Behavior is anxious. Pain: Denies pain. Neuro: Level of aa5 Consciousness is awake, alert, obeys commands, Oriented to person, place, time, situation, Reports intermittent dizziness since yesterday. Cardiovascular: Heart tones S1 S2 present Rhythm is regular. Respiratory: Reports baseline cough, hx of COPD Airway is patent Respiratory effort is even, unlabored, Respiratory pattern is regular, symmetrical. GI: Abdomen is round non-distended, Bowel sounds present X 4 quads. Abd is soft and non tender X 4 quads. Reports nausea, Patient currently denies diarrhea, vomiting. : No signs and/or symptoms were reported regarding the genitourinary system. EENT: No signs and/or symptoms were reported regarding the EENT system. Derm: Skin is pink, warm \T\ dry. Musculoskeletal: Range of motion: intact in all extremities. 11:36 Reassessment: Pt back from CT . aa5 12:30 Reassessment: Patient is alert, oriented x 3, equal unlabored respirations, skin aa5 warm/dry/pink. Vital Signs: 10:54 BP 167 / 106; Pulse 75; Resp 18; Temp 99(O); Pulse Ox 98% on R/A; Weight 77.11 kg; iw Height 5 ft. 8 in. ; 13:18 BP 158 / 79; Pulse 89; Resp 16; Temp 98; Pulse Ox 100% on R/A; iw 10:54 Body Mass Index 25.85 (77.11 kg, 172.72 cm) iw ED Course: 10:51 Patient arrived in ED. am2 10:52 Jose Hogue MD is Attending Physician. jr11 10:57 Triage completed. iw 10:57 Arm band placed on. iw 11:00 Patient has correct armband on for positive identification. Bed in low position. Call aa5 light in reach. Side rails up X2. Client placed on continuous cardiac and pulse oximetry monitoring. NIBP monitoring applied. 11:01 Julianne Noland, RN is Primary Nurse. aa5 11:05 Initial lab(s) drawn, by me, sent to lab. Inserted saline lock: 20 gauge in right aa5 antecubital area, using aseptic technique. Blood collected. 11:25 EKG done, by ED staff, reviewed by Jose Hogue MD. aa5 11:[address] via stretcher. aa5 11:36 CT Head Brain wo Cont In Process Unspecified. EDMS 12:43 Angela Wang MD is Referral Physician. jr11 13:18 No provider procedures requiring assistance completed. IV discontinued, intact, iw bleeding controlled, No redness/swelling at site. Pressure dressing applied. Administered Medications: 11:15 Drug: Ondansetron IVP 4 mg Route: IVP; Site: right antecubital; aa5 11:20 Follow up: Response: No adverse reaction aa5 11:15 Drug: Meclizine PO 50 mg Route: PO; aa5 Medication: 13:18 VIS not applicable for this client. iw Outcome: 12:43 Discharge ordered by . jr11 13:18 Discharged to home ambulatory, with family. iw 13:18 Condition: good 13:18 Discharge instructions given to patient, family, Instructed on discharge instructions, follow up and referral plans. medication usage, Demonstrated understanding of instructions, follow-up care, medications, Prescriptions given X 2. 13:18 Patient left the ED. iw Signatures: Dispatcher [employer] EDMS Kori Duarte RN RN iw Julianne Noland, RN RN aa5 Jessica Finch 2 Jose Hogue MD MD jr11 Corrections: (The following items were deleted from the chart) 10:58 10:54 Pulse 75bpm; Resp 18bpm; Pulse Ox 98% RA; iw iw
--- NOTE | 2023-05-24 12:44 | EDPHYS ---
Physician Documentation [facility] Name: Armin Kapadia Jr Age: 62 yrs Sex: Male : 1960 Arrival Date: 05/24/2023 Time: 10:50 Bed 10 Private MD: ED Physician Jose Hogue HPI: 05/24 11:01 Patient is a 62-year-old that since yesterday has had vertigo-like sensation when jr11 getting out of bed. This lasted for few hours after that and gets better. Patient had it last night yesterday morning and then again this morning. Patient when he had it yesterday was to a point where he had to hold on to something. Went away at the middle of the day. Nausea no vomiting, denies any other neurologic complaints no weakness no change in sensation. No ataxia denies exertional pain, no tearing pain, does not radiate to the back, does not cross the diaphragm. No diaphoresis, no vomiting. No syncope or near-syncope. . Historical: - Allergies: 10:58 No Known Allergies; iw - Home Meds: 10:58 amlodipine 5 mg tablet daily [Active]; metformin 500 mg Oral tablet 2 times per day iw [Active]; rosuvastatin 10 mg oral tablet daily [Active]; propranolol 60 mg oral tablet 1 tab daily [Active]; - PMHx: 10:57 COPD; diabetes mellitus; high trig; tremors; iw - Immunization history:: Client reports receiving the 2nd dose of the Covid vaccine. - Social history:: Smoking status: Patient denies any tobacco usage or history of. ROS: 11:01 All other systems are negative. jr11 Exam: 11:01 Constitutional: This is a well developed, well nourished patient who is awake, alert, jr11 and in no acute distress. Head/Face: Normocephalic, atraumatic. Eyes: Extra-ocular motions intact. Lids and lashes normal. Conjunctiva and sclera are non-icteric and not injected. Cornea within normal limits. Periorbital areas with no swelling, redness, or edema. ENT: Nares patent. No nasal discharge, no septal abnormalities noted. Oropharynx with no redness, swelling, or masses, exudates, or evidence of obstruction, uvula midline. Mucous membranes moist. Chest/axilla: Normal chest wall appearance and motion. Nontender with no deformity. No lesions are appreciated. Cardiovascular: Regular rate and rhythm with a normal S1 and S2. No gallops, murmurs, or rubs. Normal PMI, no JVD. No pulse deficits. Respiratory: Lungs have equal breath sounds bilaterally, clear to auscultation and percussion. No rales, rhonchi or wheezes noted. No increased work of breathing, no retractions or nasal flaring. Abdomen/GI: Soft, non-tender, with normal bowel sounds. No distension or tympany. No guarding or rebound. No evidence of tenderness throughout. Skin: Warm, dry with normal turgor. Normal color with no rashes, no lesions, and no evidence of cellulitis. MS/ Extremity: Pulses equal, no cyanosis. Neurovascular intact. Full, normal range of motion. Neuro: Awake and alert, GCS 15, oriented to person, place, time, and situation. No gross motor or sensory deficits. Stroke scale is equal to 0 Vital Signs: 10:54 BP 167 / 106; Pulse 75; Resp 18; Temp 99(O); Pulse Ox 98% on R/A; Weight 77.11 kg; iw Height 5 ft. 8 in. ; 13:18 BP 158 / 79; Pulse 89; Resp 16; Temp 98; Pulse Ox 100% on R/A; iw 10:54 Body Mass Index 25.85 (77.11 kg, 172.72 cm) iw MDM: 10:58 Patient medically screened. jr11 11:01 Differential diagnosis: cardiac arrhythmia, CVA, generalized weakness, hypovolemia, jr11 vertigo. Differential diagnosis: Patient is a 62-year-old male with vertigo, this started yesterday, patient's not a thrombolytic candidate. We will do CT head rule out stroke given that its been over 24 hours, if negative, this is likely peripheral not central vertigo. We will treat symptomatically in the meantime. We will also check electrolytes EKG rule out arrhythmia.. Data reviewed: vital signs, nurses notes. 11:31 ED course: EKG interpreted by me shows normal sinus rhythm left axis deviation normal jr11 intervals, T wave inversions lead III otherwise no significant ST changes. Nondiagnostic.. 12:43 ED course: Patient feeling significantly better. CT interpreted by me, shows no head jr11 bleed. Patient likely with peripheral vertigo will prescribe meclizine and Zofran. Patient to follow-up with ENT if not improving. 05/24 11:00 Order name: Basic Metabolic Panel; Complete Time: 05/24 11:00 Order name: CBC with Diff; Complete Time: 05/24 11:00 Order name: Hepatic Function; Complete Time: 05/24 11:00 Order name: Magnesium; Complete Time: 05/24 11:00 Order name: Protime (+inr); Complete Time: 05/24 11:00 Order name: Ptt, Activated; Complete Time: 05/24 11:00 Order name: Troponin High Sensitivity; Complete Time: 05/24 11:01 Order name: COVID-19 SARS RT PCR; Complete Time: 12:05/24 11:00 Order name: CT Head Brain wo Cont; Complete Time: 05/24 11:00 Order name: EKG; Complete Time: :05/24 11:00 Order name: Cardiac monitoring; Complete Time: 05/24 11:00 Order name: EKG - Nurse/Tech; Complete Time: 05/24 11:00 Order name: IV Saline Lock; Complete Time: 05/24 11:00 Order name: Labs collected and sent; Complete Time: 05/24 11:00 Order name: NPO; Complete Time: 05/24 11:00 Order name: O2 Per Protocol; Complete Time: 05/24 11:00 Order name: O2 Sat Monitoring; Complete Time: Administered Medications: 11:15 Drug: Ondansetron IVP 4 mg Route: IVP; Site: right antecubital; aa5 11:20 Follow up: Response: No adverse reaction aa5 11:15 Drug: Meclizine PO 50 mg Route: PO; aa5 Disposition Summary: 05/24/23 12:43 Discharge Ordered Location: Home [facility] Condition: Stable [facility] Diagnosis - Other peripheral vertigo jr11 - Dizziness and giddiness jr11 Followup: 11 - With: Angela Wang MD - When: 2 - 3 days - Reason: If symptoms return Discharge Instructions: - Discharge Summary Sheet jr11 - Dizziness jr11 - Hyperglycemia jr11 - Vertigo jr11 Forms: - Work release form jl7 - Medication Reconciliation Form jr11 - Thank You Letter jr11 - Antibiotic Education jr11 - Prescription Opioid Use jr11 - Patient Portal Instructions jr11 Prescriptions: - Meclizine 25 mg Oral Tablet - take 1 tablet by ORAL route every 8 hours As needed; 30 tablet; Refills: 0, jr11 Product Selection Permitted - Zofran 4 mg Oral Tablet - take 1 tablet by ORAL route every 12 hours As needed; 20 tablet; Refills: 0, jr11 Product Selection Permitted Signatures: Dispatcher [employer] Kori Bar RN RN iw Calderon, Audri, RN RN aa5 Jose Hogue MD MD jr11
[2023-05-24 14:00] VITALS: BP 158/79; TEMP 98; O2SAT 100
--- NOTE | 2023-05-26 17:43 | EKG ---
Test Date: 2023-05-24 Test Time: 11:24:17 Re Dye Hand: OLEGARIO MEASUREMENT RESULTS: Intervals: Rate: 65 ID: [id number] QRSD: 98 QT: 418 QTc: 434 [place]: P: 53 ID: [id number] QRS: -48 T: 4 INTERPRETIVE STATEMENTS: Normal sinus rhythm Left anterior fascicular block Abnormal ECG Compared to ECG 03/14/2023 04:42:45 Left ventricular hypertrophy no longer present ST (T wave) deviation no longer present Electronically Signed On 05-26-23 17:36:01 CDT by Luan Parks
== END 2023-05-24 13:18 | disposition home or self-care (01) ==
LOC: ER 10:50
DX: H81.399 Other peripheral vertigo, unspecified ear (principal); E11.9 Type 2 diabetes mellitus without complications; J44.9 Chronic obstructive pulmonary disease, unspecified; Z20.822 Contact with and (suspected) exposure to COVID-19
CPT/HCPCS: 93005; 85025; 80048; 36415; 83735; 85610; 80076; 85730; 84484; 87635; 70450; 96374; 99285; J8597; J2405

== ENCOUNTER 2023-09-05 18:41 | Emergency (ER) | payer BC ==
[2023-09-05] MEDS ORDERED: IPRATROPIUM BROM 0.5MG/2.5ML ONE (19:24)
[2023-09-05] MEDS ORDERED: ALBUTEROL 2.5 MG/3 ML NEB SOL ONE (19:24)
--- NOTE | 2023-09-05 19:36 | RAD REPORT ---
EXAM DESCRIPTION: Katharina Single View09/05/2023 7:20 pm CLINICAL HISTORY: Cough COMPARISON: February 2023 FINDINGS: The lungs appear clear of acute infiltrate. The heart is normal size IMPRESSION: No acute abnormalities displayed
[2023-09-05 19:53] LABS: SARS-COV-2 RT PCR NEGATIVE (NEGATIVE)
--- NOTE | 2023-09-05 19:53 | EDPHYS ---
Physician Documentation [facility] Name: Armin Kapadia Jr Age: 63 yrs Sex: Male : 1960 Arrival Date: 09/05/2023 Time: 18:41 Bed 14 Private MD: ED Physician Alan Perez HPI: 09/05 18:54 This 63 yrs old Male presents to ER via Ambulatory with complaints of Flu Symptoms. kb 18:54 Patient is a 63-year-old male with a history of COPD, diabetes, hypertension and high kb cholesterol who presents for cough, congestion, fever, body aches, chills, runny nose that started 2 days ago. States his grandchildren just got over the flu. Denies shortness of breath or chest pain.. Historical: - Allergies: 18:51 No Known Allergies; ss - PMHx: 18:51 COPD; diabetes mellitus; high trig; tremors; ss ROS: 18:54 Abdomen/GI: Negative for abdominal pain, nausea, vomiting, diarrhea, and constipation, kb 18:54 Constitutional: Positive for body aches, chills, fatigue, fever, malaise, 18:54 ENT: Positive for rhinorrhea, 18:54 Respiratory: Positive for cough, 18:54 Neuro: Positive for headache, 18:54 All other systems are negative, Exam: 18:54 Constitutional: This is a well developed, well nourished patient who is awake, alert, kb and in no acute distress. Head/Face: Normocephalic, atraumatic. ENT: Moist Mucous membranes Cardiovascular: Regular rate Abdomen/GI: Soft, non-tender. No distention Skin: Warm, dry with normal turgor. Normal color. MS/ Extremity: Pulses equal, no cyanosis. Neurovascular intact. Full, normal range of motion. Neuro: Awake and alert, GCS 15, oriented to person, place, time, and situation. Moves all extremities. Normal gait. 18:54 Respiratory: the patient does not display signs of respiratory distress, Respirations: normal, Breath sounds: wheezing: expiratory that is mild, is heard diffusely, Vital Signs: 18:49 BP 149 / 89; Pulse 83; Resp 16; Temp 99.3(TE); Pulse Ox 95% ; Weight 74.84 kg; Height 5 ss ft. 7 in. ; 18:50 BP 149 / 89; Pulse 85; Resp 18; Temp 99.3(TE); Pulse Ox 99% on R/A; ss 20:09 BP 122 / 84; Pulse 95; Resp 18; Pulse Ox 99% on R/A; kl 18:49 Body Mass Index 25.84 (74.84 kg, 170.18 cm) ss MDM: 18:45 Patient medically screened. kb 18:55 Differential Diagnosis: Bronchitis Influenza Upper Respiratory Infection Pneumonia kb Other covid. Data reviewed: vital signs, nurses notes. 19:44 Independent interpretation of the following test(s) in the Emergency Department X-Ray: kb My interpretation is chest x-ray clear. 19:52 I considered the following discharge prescriptions or medication management in the emergency department I discussed and recommended Over The Counter medications, Antibiotics: At this time antibiotics are not recommended. Counseling: I had a detailed discussion with the patient and/or guardian regarding the historical points, exam findings, and any diagnostic results supporting the discharge/admit diagnosis, lab results, radiology results, the need for outpatient follow up, a family practitioner, to return to the emergency department if symptoms worsen or persist or if there are any questions or concerns that arise at home. 09/05 18:53 Order name: COVID-19/FLU A+B/RSV; Complete Time: 19:55 kb 09/05 18:53 Order name: Chest Single View XRAY; Complete Time: 19:44 kb Administered Medications: 19:10 Drug: Albuterol Inhalation 2.5 mg Inhalation once Route: Inhalation; kl 20:10 Follow up: Response: Marked relief of symptoms kl 19:10 Drug: Ipratropium Inhalation Aerosol 0.5 mg Inhalation once Route: Inhalation; kl 20:10 Follow up: Response: Marked relief of symptoms kl 20:08 Drug: predniSONE PO 40 mg PO once Route: PO; kl 20:10 Follow up: Response: No adverse reaction Disposition Summary: 09/05/23 19:52 Discharge Ordered Notes: Location: Home Condition: Stable Diagnosis - Respiratory syncytial virus as the cause of diseases classified elsewhere Followup: kb - With: Emergency Department - When: As needed - Reason: Worsening of condition Followup: kb - With: Private Physician - When: 2 - 3 days - Reason: Recheck today's complaints, Continuance of care, Re-evaluation by your physician Discharge Instructions: - Discharge Summary Sheet kb - Upper Respiratory Infection, Adult, [id number] kb Forms: - Work release form kb - Medication Reconciliation Form kb - Thank You Letter kb - Antibiotic Education kb - Prescription Opioid Use kb - Patient Portal Instructions kb - Leadership Thank You Letter kb Prescriptions: - albuterol sulfate 90 mcg/actuation Inhalation HFA Aerosol Inhaler - inhale 2 puff INHALATION route every 4-6 hours As needed; 1 unit; Refills: 0, kb Product Selection Permitted - Prednisone 20 mg Oral Tablet - take 1 tablet ORAL route once daily for 5 days; 5 tablet; Refills: 0, Product kb Selection Permitted Addendum: 09/07/2023 07:42 I was immediately available for consultation during this patient's visit. I did not e c2 personally see the patient or guide the patient's care.. Signatures: Dispatcher [employer] Erica Carlisle, SHIRA-C SHIRA-Marce Flores RN RN kl Blanchard, Shelby, RN RN ss Corral, Edwin, MD MD ec2
--- NOTE | 2023-09-05 19:53 | ER ---
Nurse's Notes [facility] Name: Armin Kapadia Jr Age: 63 yrs Sex: Male : 1960 Arrival Date: 09/05/2023 Time: 18:41 Bed 14 Private MD: Diagnosis: Respiratory syncytial virus as the cause of diseases classified elsewhere Presentation: 09/05 18:50 Chief complaint: Patient states: "I think I have the flu. My grand kids just got over ss the flu." Fatigue and cough x 2 days.". Coronavirus screen: Client denies travel out of the [place] in the last 14 days. Ebola Screen: Patient denies exposure to infectious person. Patient denies travel to an Ebola-affected area in the 21 days before illness onset. Initial Sepsis Screen: Does the patient meet any 2 criteria? No. Patient's initial sepsis screen is negative. Does the patient have a suspected source of infection? No. Patient's initial sepsis screen is negative. Risk Assessment: Do you want to hurt yourself or someone else? Patient reports no desire to harm self or others. Onset of symptoms was September 03, 2023. 18:50 Method Of Arrival: Ambulatory ss 18:50 Acuity: NEL 3 ss Historical: - Allergies: 18:51 No Known Allergies; ss - PMHx: 18:51 COPD; diabetes mellitus; high trig; tremors; ss Screenin:09 [facility] ED Fall Risk Assessment (Adult) History of falling in the last 3 months, kl including since admission No falls in past 3 months (0 pts) Confusion or Disorientation No (0 pts) Intoxicated or Sedated No (0 pts) Impaired Gait No (0 pts) Mobility Assist Device Used No (0 pt) Altered Elimination No (0 pt) Score/Fall Risk Level 0 - 2 = Low Risk Oriented to surroundings, Maintained a safe environment. Abuse screen: Denies threats or abuse. Nutritional screening: No deficits noted. Tuberculosis screening: No symptoms or risk factors identified. Assessment: 20:09 Reassessment: Patient appears in no apparent distress at this time. Patient is alert, kl oriented x 3, equal unlabored respirations, skin warm/dry/pink. Patient denies pain at this time. Patient states feeling better. Patient states symptoms have improved. Vital Signs: 18:49 BP 149 / 89; Pulse 83; Resp 16; Temp 99.3(TE); Pulse Ox 95% ; Weight 74.84 kg; Height 5 ss ft. 7 in. ; 18:50 BP 149 / 89; Pulse 85; Resp 18; Temp 99.3(TE); Pulse Ox 99% on R/A; ss 20:09 BP 122 / 84; Pulse 95; Resp 18; Pulse Ox 99% on R/A; kl 18:49 Body Mass Index 25.84 (74.84 kg, 170.18 cm) ED Course: 18:44 Patient arrived in ED. im 18:45 Erica Godinez FNP-C is PHCP. kb 18:45 Alan Perez MD is Attending Physician. kb 18:49 Arm band placed on right wrist. ss 18:51 Triage completed. ss 19:22 Chest Single View XRAY In Process Unspecified. EDMS 20:10 No provider procedures requiring assistance completed. Patient did not have IV access kl during this emergency room visit. Administered Medications: 19:10 Drug: Albuterol Inhalation 2.5 mg Inhalation once Route: Inhalation; kl 20:10 Follow up: Response: Marked relief of symptoms kl 19:10 Drug: Ipratropium Inhalation Aerosol 0.5 mg Inhalation once Route: Inhalation; kl 20:10 Follow up: Response: Marked relief of symptoms kl 20:08 Drug: predniSONE PO 40 mg PO once Route: PO; kl 20:10 Follow up: Response: No adverse reaction kl Outcome: 19:52 Discharge ordered by . kb 20:10 Patient left the ED. kl Signatures: Dispatcher [employer] EDMA Erica Godinez FNP-C FNP-Ckb Lewis, Kimberly RN RN Justina Jurado, RAYMOND RN Jacki Zapata
[2023-09-05 20:16] VITALS: TEMP 99.3
[2023-09-05 20:17] VITALS: O2SAT 99
[2023-09-05 20:18] VITALS: BP 122/84
[2023-09-05] MEDS ORDERED: predniSONE 20 MG TAB ONE (20:18)
== END 2023-09-05 20:10 | disposition home or self-care (01) ==
LOC: ER 18:41
DX: R05.9 Cough, unspecified (principal); B97.4 Respiratory syncytial virus as the cause of diseases classified elsewhere; J44.9 Chronic obstructive pulmonary disease, unspecified; E11.9 Type 2 diabetes mellitus without complications; Z11.52 Encounter for screening for COVID-19
CPT/HCPCS: 0241U; 71045; 99284; J7512; J7613; J7644